=== PATIENT | male | born 1995 | race American Indian/Alaskan Native ===

== ENCOUNTER 2020-02-05 01:58 | Emergency (ER) | payer SELFPAY ==
--- NOTE | 2020-02-05 03:29 | Emergency Department Report ---
ED General Adult HPI - General Chief complaint: Chest Pain Stated complaint: CHEST PAIN,LEFT SIDE Time Seen by Provider: 02/05/20 03:14 Source: patient Mode of arrival: Ambulatory Limitations: No Limitations - History of Present Illness Initial comments: 24-year-old -[place] male presents emergency department complaining of few hour history of left-sided chest pain that is not associated with cough, shortness of breath, fever, hemoptysis, hematemesis, hematochezia, nausea or vomiting.. Reports no known contact with the coronavirus wanted to be evaluated to due to his lymphoma history. He reports no night sweats, no weight loss, lymphadenopathy, or increased fatigue Location: chest Radiation: non-radiation Quality: aching Consistency: constant Improves with: none Worsens with: none Associated Symptoms: chest pain. 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 Absent: lymphadenopathy - Respiratory Respiratory exam: Present: normal lung sounds bilaterally. Absent: respiratory distress, wheezes, rales, chest wall tenderness, accessory muscle use - Cardiovascular Cardiovascular Exam: Present: regular rate, normal rhythm. Absent: systolic murmur, diastolic murmur, rubs, gallop - GI/Abdominal GI/Abdominal exam: Present: soft, normal bowel sounds - Rectal Rectal exam: Present: deferred - Extremities Exam Extremities exam: Present: normal inspection - Back Exam Back exam: Present: normal inspection. Absent: CVA tenderness (R), CVA tenderness (L) - Neurological Exam Neurological exam: Present: alert, oriented X3, CN II-XII intact, normal gait - Psychiatric Psychiatric exam: Present: normal affect, normal mood - Skin Skin exam: Present: warm, dry, intact, normal color. Absent: rash ED Medical Decision Making - EKG Data EKG shows normal: sinus rhythm Rate: normal - Radiology Data Radiology results: report reviewed [facility] [address] [place] [address] XRay Report Signed Patient: STEPHEN MORILLO MR#: [id number] : 1995 Acct:[id number] Age/Sex: 24 / M ADM Date: 02/05/20 Loc: ED Attending Dr: Ordering Physician: MEÑO HERNADEZ MD Date of Service: 02/05/20 Procedure(s): XR chest 1V ap Accession Number(s): [id number] cc: ED MD MARICARMEN Fluoro Time In Minutes: CHEST 1 VIEW, 02/05/2020 2:58 AM CLINICAL INFORMATION/INDICATION: Chest pain COMPARISON: None FINDINGS: SUPPORT DEVICES: None. HEART: The cardiac silhouette is normal in size. LUNGS/PLEURA: The lungs are well expanded and appear clear of focal airspace disease or significant pleural effusion. ADDITIONAL FINDINGS: No additional acute findings. IMPRESSION: 1. No evidence of acute cardiopulmonary process. Signer Name: Jackelyn Mcnamara MD Signed: 02/05/2020 3:25 AM Workstation Name: [id number] Transcribed By: EB Dictated By: Jackelyn Mcnamara MD Electronically Authenticated By: Jackelyn Mcnamara MD Signed Date/Time: 02/05/20324 DD/ 4 TD/TT: - Medical Decision Making This patient presents with chest pain that is very unlikely angina or acute coronary syndrome. The emergency department evaluation has not identified any cause for suspicion that this chest pain has a cardiac etiology. Based on their history, EKG (which showed no evidence of ischemia or infarction) and imaging, in addition to the patient's physical exam, I see no evidence at this time for a malignant etiology for the patient's chest pain. There is no acute evidence for pulmonary embolus, acute myocardial infarction, pneumothorax, Boerhaeve syndrome, cardiac tamponade, thoracic artery dissection, or any other emergent cardiac, pulmonary or aortic pathology. Given the low pre-test probability for cardiac etiology of chest pain and the absence of any sign of ischemia or infarction, discharge for outpatient follow-up and further evaluation is reasonable. I have explained to the patient that even though a cardiac problem is very unlikely, follow-up and further testing is required to reduce further the already small uncertainty that exists. Other life-threatening diagnoses have been considered. The patient understands the need to return immediately if their symptoms worsen or they develop any new symptoms, and not to engage in any significant exertional activity until follow-up is obtained. Critical care attestation.: If time is entered above; I have spent that time in minutes in the direct care of this critically ill patient, excluding procedure time. ED Disposition Clinical Impression: Chest pain Disposition: DC-01 TO HOME OR SELFCARE Is pt being admited?: No Does the pt Need Aspirin: No Condition: Stable Instructions: Chest Pain (ED) Referrals: PRIMARY CAREMD [Primary Care Provider] - 3-5 Days EH RAMOS MD [Staff Physician] - 3-5 Days
[2020-02-05 03:37] VITALS: BP 114/74
== END 2020-02-05 03:38 | disposition home or self-care (01) ==
LOC: ED 01:58
DX: R07.89 Other chest pain (principal); Z79.899 Other long term (current) drug therapy
CPT/HCPCS: 71045; 93005; 99283

== ENCOUNTER 2021-03-20 02:40 | Emergency (ER) | payer SELFPAY ==
[2021-03-20 04:04] LABS: Basophils % (Auto) 0.4 % (0.0-1.8); Hematocrit 36.8 % (35.5-45.6); Hemoglobin 11.9 gm/dl (11.8-15.2); Lymphocytes # (Auto) 0.6 K/mm3 (1.2-5.4); Lymphocytes % (Auto) 9.2 % (13.4-35.0); Mean Corpuscular HGB Conc 32 % (32-34); Mean Corpuscular Volume 87 fl (84-94); Monocytes % (Auto) 5.5 % (0.0-7.3); Platelet Count 192 K/mm3 (140-440); Red Blood Count 4.24 M/mm3 (3.65-5.03); Red Cell Distribution Width 13.5 % (13.2-15.2)
[2021-03-20 04:05] LABS: Monocytes # (Auto) 0.4 K/mm3 (0.0-0.8)
[2021-03-20 04:13] LABS: Alanine Aminotransferase 14 units/L (7-56); Albumin 4.4 g/dL (3.9-5); BUN/Creatinine Ratio 8; Blood Urea Nitrogen 8 mg/dL (9-20); Calcium 8.9 mg/dL (8.4-10.2); Hemolysis Index 7
[2021-03-20] MEDS ORDERED: ONDANSETRON 4 MG ODT TAB PO ONE (05:02)
--- NOTE | 2021-03-20 05:02 | Emergency Department Report ---
ED General Adult HPI - General Chief complaint: Nausea/Vomiting/Diarrhea Stated complaint: VOMITING/TOOK PAIN PILL Time Seen by Provider: 03/20/21 04:52 Source: patient Mode of arrival: Ambulatory Limitations: No Limitations - History of Present Illness Initial comments: 25-year-old male patient presents to emergency department complaints of nausea and vomiting starting last night. Patient states his symptoms began after he took a friend's Roxicodone for back pain. States he did eat some food at the same time as taking the medication. Last episode of vomiting was approximately 3 hours earlier. No known sick contacts. Patient does not typically use opiate medications. He was not feeling sick at all before taking the medication. Denies all other complaints at this time. - Related Data Previous Rx's Medication Instructions Recorded Last Taken Type Naproxen [Naprosyn TAB] 500 mg PO BID #30 tablet 03/12/20 Unknown Rx Ondansetron [Zofran Odt] 4 mg PO Q4H #20 tab.rapdis 03/20/21 Unknown Rx Allergies Allergy/AdvReac Type Severity Reaction Status Date / Time No Known Allergies Allergy Verified 03/20/21 05:33 ED Review of Systems ROS: Stated complaint: VOMITING/TOOK PAIN PILL Other details as noted in HPI Other: GENERAL: Negative for fever, chills, weight change, anorexia, fatigue. ENT: Negative for ear pain, difficulty hearing, sore throat, nasal congestion, epistaxis. CARDIOVASCULAR: Negative for chest pain, palpitations, lower extremity swelling. PULMONARY: Negative for cough, dyspnea, wheezing, orthopnea, cyanosis. GASTROINTESTINAL: Positive for nausea and vomiting. MUSCULOSKELETAL: Negative for joint pain, joint swelling, myalgias, back pain, neck pain. NEUROLOGICAL: Negative for headache, seizure, syncope, paresthesias, weakness. INTEGUMENTARY: Negative for erythema, rash, diaphoresis, laceration, ecchymosis. HEMATOLOGICAL: Negative for hemoptysis, hematemesis, hematochezia, hematuria. PSYCHIATRIC: Negative for hallucinations, suicidal ideation, homicidal ideation, anxiety, depression. ED Past Medical Hx - Past Medical History Previous Medical History?: Yes Additional medical history: Lymphoma [id number] now in remission - Surgical History Past Surgical History?: Yes Additional Surgical History: Left Collar bone Removed - Social History Smoking Status: Never Smoker Substance Use Type: Marijuana - Medications Home Medications: Home Medications Medication Instructions Recorded Confirmed Last Taken Type Naproxen [Naprosyn TAB] 500 mg PO BID #30 tablet 03/12/20 Unknown Rx Ondansetron [Zofran Odt] 4 mg PO Q4H #20 tab.rapdis 03/20/21 Unknown Rx ED Physical Exam - General Limitations: No Limitations - Other Other exam information: General: Awake and alert. No acute distress. Head: Atraumatic, normocephalic. Eyes: EOMI. Pupils are equal and round. Normal sclera and conjunctiva. ENT: Oral mucosa is moist. Normal pharyngeal exam. Neck: Supple. No lymphadenopathy. Pulmonary: No respiratory distress. Clear to auscultation bilaterally. Cardiac: Regular rate and rhythm. Pulses are palpable and equal bilaterally. No lower extremity cyanosis or edema. Skin: Warm and dry. No rashes. Abdomen: Soft, non-tender, non-protuberant. No guarding, rigidity, or rebound. Bowel sounds are normal. No organomegaly or masses noted. Back: Normal alignment. No CVA tenderness. Extremities: Symmetrical. Full range of motion intact. Neurological: Alert and oriented, appropriately interactive, no focal deficits. Psych: Cooperative. Appropriate mood and affect. Speech is evenly metered. Thoughts are logically construed. ED Course Vital Signs 03/20/21 03/20/21 03:27 05:31 Temperature 98.7 F Pulse Rate 61 61 Respiratory 16 18 Rate Blood Pressure 103/75 Blood Pressure 107/72 [Left] O2 Sat by Pulse 100 96 Oximetry ED Medical Decision Making - Lab Data Result diagrams: 03/20/21 03:39 03/20/21 03:39 - Medical Decision Making Differential diagnosis including but not limited to: dehydration, electrolyte abnormality, hypoglycemia, pancreatitis, cholecystitis, peptic ulcer disease, appendicitis On reevaluation, patient is stable and symptoms have improved. No further vomiting in the emergency department. He is resting comfortably, no distress. Repeat abdominal exam is benign. Labs ordered by roller prior to medical screening examination within normal limits. Patient's nausea and vomiting is likely attributable to recent ingestion of non-authorized prescription medication. No clinical indication for further diagnostic work-up on an emergent basis at this time. Patient will be discharged home with antiemetics and referred to primary care provider for close outpatient follow-up. Emphasized the importance of refraining from taking prescription medication without physician consultation. Patient expressed understanding and is agreeable to plan of care. Strict return precautions provided. Repeat exam is unremarkable and benign. History, exam, diagnostic testing, and current condition do not suggest worrisome pathology to warrant further testing, continued ED treatment, admission, or surgical evaluation at this point. Given the low probability of a significant medical illness, it would be more likely to result in harm than benefit to perform further testing at this stage. Discussed findings, presumptive diagnosis, need for follow-up and specific signs/symptoms that should prompt immediate return to the emergency department. Instructions were explained in detail to the patient in addition to giving written discharge information. Patient expressed understanding and was given the opportunity to ask questions, all of which were satisfactorily answered prior to discharge home. Critical care attestation.: If time is entered above; I have spent that time in minutes in the direct care of this critically ill patient, excluding procedure time. ED Disposition Clinical Impression: Nausea & vomiting Qualifiers: Vomiting type: unspecified Vomiting Intractability: non-intractable Qualified Code(s): R11.2 - Nausea with vomiting, unspecified Disposition: TO HOME OR SELFCARE Is pt being admited?: No Does the pt Need Aspirin: No Condition: Stable Instructions: Nausea and Vomiting, Adult, [id number] Additional Instructions: Take Zofran as directed for nausea/vomiting. Rest. Drink plenty of fluids. Gradually advance diet slowly as tolerated. Do not ingest any prescription pain medications without consulting a physician. Follow-up with primary care provider this week. Call today to schedule an appointment. See referral information below. Return to the emergency department immediately for new or worsening symptoms. Prescriptions: Ondansetron [Zofran Odt] 4 mg PO Q4H #20 tab.rapdis Referrals: EH RAMOS MD [Staff Physician] - 3-5 Days [facility] [Provider Group] - 3-5 Days Time of Disposition: 05:02
[2021-03-20 05:31] VITALS: BP 107/72
== END 2021-03-20 05:39 | disposition home or self-care (01) ==
LOC: ED 02:40
DX: R11.2 Nausea with vomiting, unspecified (principal); F12.90 Cannabis use, unspecified, uncomplicated; Z98.890 Other specified postprocedural states; Z79.899 Other long term (current) drug therapy
CPT/HCPCS: 36415; 80053; 83690; 85025; Q0162